=== PATIENT | female | born 1975 | race Caucasian/White ===

== ENCOUNTER 2019-07-31 00:36 | Day surgery (SDC) | payer OTHER, SELFPAY ==
[2019-07-18 11:48] VITALS: BMI 28.3
[2019-07-31 07:10] VITALS: BP 124/83; PULSE 81; RESP 18; TEMP 37.2; O2SAT 100
[2019-07-31] MEDS: LACTATED RINGERS 1,000 ML 30 ML IV CONT (07:30)
--- NOTE | 2019-07-31 08:16 | WPDANESEPPF ---
Anes - Initial Pre Proc Eval Procedure: Operation Date: 07/31/19 09:00 Proposed Procedures p Hysteroscopy, Dilation and Curettage, Rin Endometrial Ablation, Possible Myosure - Heath Michel MD Date/Time: 07/31/19 08:16 Surgeon: Heath Michel MD Pre Op Diagnosis: Menorrhagia Patient Data Age: 43 Gender: F Height: 5 ft 1 in Weight: 68.35 kg Last Vital Signs Temp 37.2 C 07/31/19 07:10 Pulse 81 07/31/19 07:10 Resp 18 07/31/19 07:10 BP 124/83 07/31/19 07:10 Pulse Ox 100 07/31/19 07:10 Allergies Allergy/AdvReac Type Severity Reaction Status Date / Time codeine AdvReac Unknown Itching Verified 07/31/19 07:32 Home Medications Medication Instructions Recorded Confirmed Type Neocell Joint Support 1 tablet PO DAILY 07/18/19 History multivitamin 1 tablet PO DAILY 07/18/19 07/18/19 History Patient hx anesthesia problems: none Family hx anesthesia problems: none PMFSH Past Medical History Medical History Vaginal delivery Surgical History Surgical History Hx of laparoscopy Family History Family History Grandparent Family history of coronary artery disease, Onset Age: 45 Diabetes mellitus Social History Social History Smoking status: Never smoker Second hand tobacco smoke exposure: No Alcohol intake: current Anes - Eval Final PreProcedure Day of Procedure 07/31/19 08:16 Patient weight: overweight Heart: regular rate and rhythm Lungs: clear to auscultation Airway: Mallampati scale class II Neurological: alert and oriented Last oral intake: >/= 8 hours ASA classification: II Emergent: no Anesthetic plan: proceed Anesthesia type and monitoring: general GIVS and standard monitoring Informed Consent: The patient's anesthetic plan and its attendant risks and benefits were discussed with the patient/family/POA. Questions were solicited and answers provided to the satisfaction of the patient/family/POA.
--- NOTE | 2019-07-31 08:19 | PM.IMHP ---
H&P: HPI History of Present Illness Chief complaint: Menorrhagia Narrative: Hafsa Barreto is a 43 year old female with a long history of menorrhagia. She desires endometrial ablation. Declines all other medical options for treatment of menorrhagia. She has had a recent normal endometrial biopsy. Review of Systems Review of Systems: All systems reviewed & are unremarkable except as noted in HPI and below Constitutional: Constitutional: Reports no additional constitutional complaints Eyes: Eyes: Reports no additional eye complaints ENT: Reports Normal hearing present Cardiovascular: Cardiovascular: Denies chest pain and Denies dyspnea Respiratory: Respiratory: Reports no additional respiratory complaints, Reports cough, Denies dyspnea and Reports other Gastrointestinal: Gastrointestinal: Denies abdominal pain Genitourinary: Genitourinary: Reports no additional female genitourinary complaints, Reports as per HPI, Denies dyspareunia, Denies vaginal discharge, Denies vaginal dryness, Denies vaginal odor and Denies vaginal pruritus Integumentary/Breasts: Skin/Breast: Denies breast mass and Denies nipple discharge Neurologic: Reports Normal hearing present Psychiatric: Psychiatric: Reports no additional psychiatric complaints Endocrine: Endocrine: Reports no additional endocrine complaints Hematologic/Lymphatic: Hematologic/Lymphatic: Reports no additional hematologic/lymphatic complaints PMFSH Past Medical History Medical History Vaginal delivery Surgical History Surgical History Hx of laparoscopy Family History Family History Grandparent Family history of coronary artery disease, Onset Age: 45 Diabetes mellitus Social History Social History Smoking status: Never smoker Second hand tobacco smoke exposure: No Alcohol intake: current Meds Home Medications and Allergies Home Medications Medication Instructions Recorded Confirmed Type Neocell Joint Support 1 tablet PO DAILY 07/18/19 History multivitamin 1 tablet PO DAILY 07/18/19 07/18/19 History Allergies Allergy/AdvReac Type Severity Reaction Status Date / Time codeine AdvReac Unknown Itching Verified 07/31/19 07:32 Vital Signs Vital Signs - 24 hr 07/31/19 07:10 Temperature 99.0 F Pulse Rate 81 Respiratory Rate 18 Blood Pressure 124/83 Pulse Oximetry 100 Exam Const: General: healthy appearing, no acute distress, alert and awake Nutritional Appearance: well nourished Orientation/consciousness: oriented to person, oriented to place, oriented to time and patient oriented x3 HENMT: Head: normal to inspection Ears: hearing grossly normal bilaterally Eyes: General: appearance normal, both eyes and all related structures Resp: Effort & Inspection: normal respiratory effort and other Auscultation: clear to auscultation bilaterally Cardio: Rate: regular rate Rhythm: regular rhythm GI: Inspection: normal to inspection GI Palp: Yes No hepatosplenomegaly present Rectal Exam: visual inspection normal : General: Yes bladder normal to palpation External Female Exam: normal external appearance and normal appearance of the urethra Speculum Exam - Vagina: normal appearance of the vagina Speculum Exam - Cervix: normal appearance of the cervix Bimanual exam- vagina & uterus: normal bimanual exam, uterine size normal, bladder normal to palpation, consistency normal, non-tender and no cervical motion tenderness Bimanual Exam- Adnexa, other: no masses, normal and No adnexal tenderness OB/external & speculum: external exam normal Skin: General skin exam: normal color Neuro: General: oriented to person, oriented to place, oriented to time and patient oriented x3 Cranial nerves: Yes Normal hearing present Ex
[2019-07-31] MEDS: ceFAZolin 2 GM/D5W 50 ML 2 GM/50 ML BAG IVPB (09:10)
[2019-07-31] MEDS: KETOROLAC 30 MG/ML VIAL (*BKC) IV PUSH (09:33)
[2019-07-31 09:44] VITALS: BP 120/71; PULSE 67; RESP 14; O2SAT 97
--- NOTE | 2019-07-31 09:51 | PM.PROC ---
Procedure Note - Detailed Date of procedure: 07/31/19 Pre-op diagnosis: Menorrhagia Abnormal uterine bleeding with menorrhagia Post-op diagnosis: same Procedure performed: Hysteroscopic endometrial ablation with Rin and currettage. Description of procedure: After informed consent was obtained patient was taken to the operating room and adequate general endotracheal anesthesia was administered. Attention was turned to the vagina. Speculum was inserted. Single-tooth tenaculum placed on the anterior lip of the cervix. The uterus was sounded to 8 cm. The cervix was dilated to an 8 Moya dilator. The hysteroscope was inserted into the cavity. The findings were a normal uterine cavity. Proliferative endometrium noted. The hysteroscope was removed. The Rin ablation instrument was inserted into the cavity. Cavity assessment was performed and noted to be intact. The ablation was enabled. After 120 seconds the Rin stopped. The ablation instrument was removed. The hysteroscope was inserted and there was noted to be good eschar with the cavity. The hysteroscope was removed the single-tooth tenaculum was removed hemostasis was noted at the tenaculum site. Sponge count correct x3 The patient was extubated in the operating room and taken to recovery in stable condition. Anesthesia: GETA Surgeon: Heath Michel MD Estimated blood loss (mL): 5 Drains: No Packing: No Pathology: none sent Complications: No immediate complications Condition: stable Disposition: PACU Findings: Uterus sound to 8cm, cervical length 3cm, uterine length 5cm, uterine cavity normal, no lesions.
[2019-07-31 10:35] VITALS: BP 134/91; PULSE 67; RESP 14
== END 2019-07-31 10:35 | disposition home or self-care (01) ==
PROVIDERS: PCP Obstetrics & Gynecology; Visit Provider Obstetrics & Gynecology
PROC: 0U5B8ZZ Destruction of Endometrium, Via Natural or Artificial Opening Endoscopic (ICD-10-PCS; CPT 58563; principal; 2019-07-31 09:00)
DX: N92.0 Excessive and frequent menstruation with regular cycle (principal)
CPT/HCPCS: 58563; 88305; A9270; J0131; J0690; J1885; J2250; J2405; J2704; J3010; J7030; J7120

== ENCOUNTER 2020-09-21 10:49 | Outpatient (CLI) | payer OTHER, SELFPAY ==
--- NOTE | ~2020-09-21 | US_ITS ---
EXAMINATION: US pelvic complete w TV EXAM DATE: 09/21/2020 11:28 INDICATION: R10.2 - Pelvic and perineal pain . History of ablation. TECHNIQUE: Pelvic transabdominal and transvaginal sonogram was performed. There are multiple graysca le and Doppler images available for interpretation. There is no prior study for comparison. FINDINGS: Uterus measures 10.6 x 6.1 x 7.0 cm, and is morphologically normal. Endometrial stripe me asures 12 mm at the fundus, where there is homogeneous hypoechoic material that could be in the lumen of the endometrial canal, could be focal region of blood, endometrial hyperplasia or polyp. There i s no free pelvic fluid. Right adnexa: The ovary measures 2.1 x 1.7 x 2.1 cm and is morphologically normal. Ovarian vascular f low confirmed. Left adnexa: The ovary measures 3.1 x 3.1 x 3.4 cm and is morphologically normal. Ovarian vascular fl ow confirmed. IMPRESSION: Homogeneous hypoechoic material suspected within the endometrial canal, could be blood pr oducts or polyp. Endometrial hyperplasia also possible. Measurement distal within normal limits for p remenopausal status. Reviewed, dictated and finalized at location A. IMPRESSION: Homogeneous hypoechoic material suspected within the endometrial ca nal, could be blood products or polyp. Endometrial hyperplasia also possible. M easurement distal within normal limits for premenopausal status.
== END 2020-09-21 10:50 ==
PROVIDERS: Visit Provider Obstetrics & Gynecology
DX: R10.2 Pelvic and perineal pain (principal)
CPT/HCPCS: 76830; 76856

== ENCOUNTER 2021-04-13 11:30 | Outpatient (CLI) | payer OTHER, SELFPAY ==
[2021-04-13 11:54] LABS: Hematocrit 41.6 % (37.0-47.0); Hemoglobin 14.6 g/dL (12.0-15.0); Mean Corpuscular HGB Conc 35.1 g/dl (32-36); Mean Corpuscular Hemoglobin 30.5 pg (26-34); Mean Platelet Volume 8.7 fl (7.4-10.4); Platelet Count Result 392 k/mm3 (150-375); Red Blood Count 4.78 M/mm3 (4.2-5.4); Red Cell Distribution Width 11.8 % (11.5-14.5); White Blood Count 9.1 K/mm3 (4.5-10.0)
[2021-04-16 05:28] LABS: FSH 11.2 mIU/mL (***)
== END 2021-04-13 11:31 | disposition home or self-care (01) ==
LOC: ANHLAB 11:33
PROVIDERS: Visit Provider Obstetrics & Gynecology
DX: N92.0 Excessive and frequent menstruation with regular cycle (principal)
CPT/HCPCS: 36415; 83001; 85027

== ENCOUNTER → 2021-04-19 03:33 | Outpatient (CLI) | payer OTHER, SELFPAY ==
[2021-04-19 19:11] LABS: SARS-CoV-2 RNA PCR Negative
== END ==
PROVIDERS: Visit Provider Obstetrics & Gynecology
DX: Z01.812 Encounter for preprocedural laboratory examination (principal); Z20.822 Contact with and (suspected) exposure to COVID-19
CPT/HCPCS: C9803; U0003; U0005

== ENCOUNTER 2021-04-19 08:01 | Outpatient (CLI) | payer OTHER, SELFPAY | END 2021-04-19 08:02 | disposition home or self-care (01) | LOC: ANHSURGERY 08:04 | PROVIDERS: PCP Internal Medicine; Visit Provider Obstetrics & Gynecology | DX: R10.2 Pelvic and perineal pain (principal) | CPT/HCPCS: 36415; 86850; 86900; 86901 ==

== ENCOUNTER 2021-04-21 00:08 | Day surgery (SDC) | payer OTHER, SELFPAY ==
[2021-04-07 10:20] VITALS: BMI 30.6
--- NOTE | 2021-04-07 10:36 | PC.NURSE ---
Report to the Outpatient Waiting Room, entrance under the green pavilion located off [facility], at time 6:00 on date 04/21/21. OR Time: 7:30. - You and your visitor will be asked a series of questions to screen for COVID 19 for your protection. - A mask is required within the hospital. - Only one visitor is allowed at this time. Patient visitors will be guided where to wait when not with patient. Preoperative COVID Testing Requirements: No COVID Test needed if: (proof is required; if not received patient will have Rapid Test prior to entry) - Patient has received COVID Vaccine at least 14 days prior to procedure date or - Patient has positive COVID test result within last 90 days of surgery date. COVID Test needed if above criteria is not met If not COVID vaccinated a COVID test must be conducted within 72 hours of surgery and patient is asked to isolate self from time of testing until procedure. You will go to the [facility] for your COVID testing. The [facility] is located at the corner of [address] [facility]. COVID TEST 04/19 AT 7:45 You will only be called if COVID results are positive and your surgeon may reschedule your elective surgery date. Patients may have clear liquids (water, carbonated beverages, clear teas, apple juice) until 3 hours prior to surgery with a maximum of 20 ounces. - No food from midnight until time of surgery - Infants may have breast milk until 4 hours before surgery, formula 6 hours prior to surgery. - Children will be allowed to drink immediately following surgery. If applicable, please bring a bottle or sippy cup to assist with drinking. Juice, water, soda, and popsicles are readily available. For infants on formula, please bring formula the day of surgery. Pacifiers are allowed. Take the following medications with a SIP of water the morning of surgery: N/A Medications to discontinue per physician: VITAMINS/SUPPLEMENTS Date to take last dose: 04/17/21 Please no make-up, nail yoruba, hairspray, perfume, deodorant, or body powder the day of surgery. No jewelry (including any body piercings) or valuables the day of surgery, leave them at home. Please take a shower or bath the night before, or the morning of, surgery with an antibacterial soap. Wear comfortable, loose fitting clothing. Children are encouraged to wear pajamas. - Jewelry must be removed prior to entering the operating room. Rings and piercings that are not removed may be cut off. - The hospital will not accept responsibility for valuables. - Please leave all valuables, including medications, at home the day of surgery. If you are going home after surgery, a licensed corporate driver must drive you home. - NO public transportation without another adult. - We recommend that an adult stay with you for 24 hours following discharge. - We also recommend that you do not drive, make important decision, drink alcoholic beverages, or take any drugs that were not prescribed by your health care provider for at least 24 hours after your discharge time. For Pediatric surgeries, we recommend two adults accompany the child home (only one inside the building at this time). Follow any additional instructions given to you from your surgeon. Telephone instructions given to [facility] and asked if any additional questions and then verbalized understanding. Patient advised to call surgeon office or pre surgery nurse liaison [phone] if any additional questions.
--- NOTE | 2021-04-20 16:13 | PM.IMHP ---
H&P: HPI History of Present Illness Date/Time: 04/20/21 16:13 Patient with a history of abnormal uterine bleeding. She had a history of heavy periods which the heavy flow did improve after the endometrial ablation. She did start having cyclic severe dysmenorrhea which did not respond to NSAIDS or treatment with antibiotics for possible subclinical endometritis. She did have an ultrasound and a subsequent endometrial biopsy which showed possible polyp, possible fibroid no hyperplasia or concern for cancer. The ultrasound did not show fibroids. She started having increased prolonged period. She declines trial of any hormonal options. She desires definitive treatment of the bleeding and pelvic pain. She has had a prior tubal ligation. She has been counseled regarding the robotic laparoscopic procedure and risk benefits and alternatives and wishes to proceed with the procedure. Chief Complaint: Pelvic pain abnormal bleeding Review of Systems Review of Systems: All systems reviewed & are unremarkable except as noted in HPI and below Cardiovascular: Cardiovascular: Reports no additional cardiovascular complaints, Denies chest pain and Denies dyspnea Respiratory: Respiratory: Reports no additional respiratory complaints and Denies dyspnea Gastrointestinal: Gastrointestinal: Reports abdominal pain, Denies change in bowel habits, Denies diarrhea, Denies nausea and Denies vomiting Genitourinary: Genitourinary: Reports pelvic pain Musculoskeletal: Musculoskeletal: Reports back pain Integumentary/Breasts: Skin/Breast: Reports system reviewed and no additional complaints, except as docu Neurologic: Reports system reviewed and no additional complaints, except as documented PMFSH Past Medical History Medical History (Updated 04/21/21 @ 07:05 by Sohail Mccall MD) Arthritis Menorrhagia Vaginal delivery x 3 Surgical History Surgical History H/O tubal ligation Hx of laparoscopy S/P endometrial ablation S/P rotator cuff repair Family History Family History Grandparent Family history of coronary artery disease, Onset Age: 45 Diabetes mellitus Social History Social History Years smoked: 6 Smoking status: Former smoker Tobacco type: cigarettes Second hand tobacco smoke exposure: No Smoking end date: 05/15/94 Alcohol intake: current Drinks per week: 5 Substance use: never Substance use type: does not use Living arrangements: with family Spiritual care concerns: No Meds Home Medications and Allergies Home Medications Medication Instructions Recorded Confirmed Type Neocell Joint Support 1 tablet PO DAILY 07/18/19 04/21/21 History multivitamin 1 tablet PO DAILY 07/18/19 04/21/21 History ascorbic acid (vitamin C) 500 mg 500 mg PO DAILY 09/16/20 04/21/21 History capsule cholecalciferol (vitamin D3) 250 250 mcg PO DAILY 09/16/20 04/21/21 History mcg (10,000 unit) capsule Allergies Allergy/AdvReac Type Severity Reaction Status Date / Time codeine AdvReac Unknown Itching Verified 04/21/21 06:27 Exam Const: Orientation/consciousness: oriented to person and oriented to place HENMT: Head: normal to inspection Eyes: General: appearance normal, both eyes and all related structures Resp: Effort & Inspection: normal respiratory effort Auscultation: clear to auscultation bilaterally Cardio: Rate: regular rate Rhythm: regular rhythm GI: Inspection: normal to inspection GI Palp: No Rebound tenderness present : External Female Exam: normal external appearance Speculum Exam - Vagina: normal appearance of the vagina Speculum Exam - Cervix: normal appearance of the cervix Bimanual exam- vagina & uterus: normal bimanual exam Bimanual Exam- Adnexa, other: normal adnexae and no masses Neuro: General: oriented to person
[2021-04-21] VITALS (11 sets, daily range): BP systolic 90–144; BP diastolic 39–91; PULSE 60–103; RESP 12–20; TEMP 36.3–37.7; O2SAT 95–100
[2021-04-21] MEDS: ACETAMINOPHEN 500 MG TABLET 1000 MG PO (06:33)
[2021-04-21] MEDS: LACTATED RINGERS 1,000 ML 30 ML IV CONT ×2 (06:41→10:29)
[2021-04-21] MEDS: KETOROLAC 15 MG/ML VIAL (*BKC) IV PUSH (06:42)
--- NOTE | 2021-04-21 07:04 | WPDANESEPPF ---
Anes - Initial Pre Proc Eval Procedure: Operation Date: 04/21/21 07:30 Proposed Procedures p Robotic Assisted Total Vaginal Hysterectomy with Bilateral Salpingectomy - Heath Michel MD Date/Time: 04/21/21 07:04 Surgeon: Heath Michel MD Pre Op Diagnosis: pelvic and perineal pain Patient Data Age: 45 Gender: F Height: 1.55 m Weight: 73.48 kg Allergies Allergy/AdvReac Type Severity Reaction Status Date / Time codeine AdvReac Unknown Itching Verified 04/21/21 06:27 Home Medications Medication Instructions Recorded Confirmed Type Neocell Joint Support 1 tablet PO DAILY 07/18/19 04/21/21 History multivitamin 1 tablet PO DAILY 07/18/19 04/21/21 History ascorbic acid (vitamin C) 500 mg 500 mg PO DAILY 09/16/20 04/21/21 History capsule cholecalciferol (vitamin D3) 250 250 mcg PO DAILY 09/16/20 04/21/21 History mcg (10,000 unit) capsule Patient hx anesthesia problems: none Family hx anesthesia problems: none Results Review: All pre-operative results and documents have been reviewed as part of the pre-operative evaluation. [facility] Past Medical History Medical History (Updated 04/21/21 @ 07:05 by Sohail Mccall MD) Arthritis Menorrhagia Vaginal delivery x 3 Surgical History Surgical History H/O tubal ligation Hx of laparoscopy S/P endometrial ablation S/P rotator cuff repair Family History Family History Grandparent Family history of coronary artery disease, Onset Age: 45 Diabetes mellitus Social History Social History Years smoked: 6 Smoking status: Former smoker Tobacco type: cigarettes Second hand tobacco smoke exposure: No Smoking end date: 05/15/94 Alcohol intake: current Drinks per week: 5 Substance use: never Substance use type: does not use Living arrangements: with family Spiritual care concerns: No Anes - Eval Final PreProcedure Day of Procedure 04/21/21 07:04 Patient weight: obese Heart: regular rate and rhythm Lungs: clear to auscultation Airway: Mallampati scale class II Neurological: alert and oriented Last oral intake: >/= 8 hours ASA classification: II Emergent: no Anesthetic plan: proceed Anesthesia type and monitoring: general ETT and standard monitoring Results Review: All pre-operative results and documents have been reviewed as part of the pre-operative evaluation. Informed Consent: The patient's anesthetic plan and its attendant risks and benefits were discussed with the patient/family/POA. Questions were solicited and answers provided to the satisfaction of the patient/family/POA.
--- NOTE | 2021-04-21 07:19 | WPDHPUPDATE1 ---
History and Physical Update Update Date/Time: 04/21/21 07:19 History and Physical has been reviewed, including an updated exam of the patient. There are NO changes in the patient's condition. Risks, benefits, and alternatives have been discussed and questions answered. Patient agrees to proceed with procedure.
[2021-04-21] MEDS: ceFAZolin 2 GM/D5W 50 ML 2 GM/50 ML BAG IVPB (07:28)
--- NOTE | 2021-04-21 09:16 | SUR.OPER ---
uterus 176.2gm
--- NOTE | 2021-04-21 10:07 | PM.OP ---
Procedure Note - Brief Procedure Note - Brief Date of procedure: 04/21/21 Pre-op diagnosis: pelvic and perineal pain abnormal uterine bleeding Post-op diagnosis: same Procedure performed: Robotic assisted laparoscopic hysterectomy with bilateral salpingectomy 2. Right ovarian cystectomy 3. Left ovarian cystectomy Anesthesia: GETA Surgeon: Heath Michel MD Estimated blood loss (mL): 75 IV fluids (mL): 1,600 Urine output (mL): 125 Drains: No Packing: No Pathology: yes (Uterus with cervix and right and left fallopian tubes and right ovarian cyst wall and left ovarian cyst wall) Complications: No immediate complications Condition: stable Disposition: PACU Findings: enlarged globular uterus, 2cm cyst on right and left ovary, right fallopian tube appeared mildly dilated
[2021-04-21] MEDS: BUPIVACAINE HCL 0.5% PF 30 ML VIAL INFILTRATE (10:09)
[2021-04-21] MEDS: fentaNYL CITRATE INJ (*CRX) 100 MCG/2 ML VIAL 25 MCG IV PUSH (11:21)
--- NOTE | 2021-04-21 11:44 | PC.NURSE ---
This patient, Hafsa Barreto, was received from PACU per marylou on 04/21/21 at 1144. Patient oriented to unit policies and routines
--- NOTE | 2021-04-21 12:11 | W.PM.PROC2 ---
Procedure Note - Detailed Date of Procedure 04/21/21 Pre-op Diagnosis pelvic and perineal pain abnormal uterine bleeding Post-op Diagnosis same (3. Bilateral ovarian cysts) Procedure Performed Robotic assisted laparoscopic hysterectomy with bilateral salpingectomy. Right and left ovarian cystectomy Surgeon Heath Michel MD [employer] Aston Hardwick Anesthesia general Indications Patient with abnormal bleeding not relieved with prior endometrial ablation. Also subsequent cyclic pelvic pain. Declines hormonal options. Desires definitve treatment of her symptoms with hysterectomy. Findings Uterus enlarged and boggy, 2cm ovarian cyst on right and left ovary. Tubes findings consistent with prior tubal ligation. Description of Procedure After informed consent was obtained she was taken to the operating room and general endotracheal anesthesia was administered. She was placed in low lithotomy position and prepped and draped in sterile fashion. Jay catheter placed in bladder. Attention was turned to the vagina speculum was inserted. Single-tooth tenaculum placed on anterior lip of the cervix the uterus sounded to 8 cm. Cavity narrow consistent with prior endometrial ablation. The cervix was dilated to a 7 Moya dilator. The uterine manipulator was inserted and secured. A size 3.5 colp cup was secured in the vagina. A catheter was placed. Attention was turned to the abdomen with new sterile the glove and incision was made horizontal 2 cm above the umbilicus. A Veress needle was inserted confirmation into the abdomen was obtained with free flow of fluid and normal peritoneal pressures. Pneumoperitoneum of 15 mm per mercury was obtained. A size 8mm port was inserted under laparoscopic visualization into the abdomen. Confirmation obtained. Attention was turned to the left side of the abdomen 8 cm below and lateral to the initial incision and incision was made and a size 8 robotic port was inserted under laparoscopic visualization. Attention was turned to the right side of the abdomen and parallel to this and incision was made. A 8 mm robotic port was inserted under laparoscopic visualization. Superior and 5 mm medial to this a 10 medical assistant float port was inserted under laparoscopic visualization. Patient was placed in Trendelenburg position to the point to allow the bowel to retract out of the pelvis. The robotic arms were attached. Attention was turned to the surgical console. Attention was turned to the right round ligament which was cauterized and incised the anterior leaf of the broad ligament was further dissected to the level of the vesicouterine peritoneum. The right side of the bladder was dissected from the lower uterine segment and upper cervix. The right fallopian tube was cauterized from the broad ligament. The anterior and the posterior leaf of the broad ligament were further incised and dissected. The uterine vessels on the right were skeletonized. The ascending uterine vessels on the right were cauterized. The posterior leaf of the broad ligament was further dissected. The uterine vessels were cauterized. Attention was turned to the left fallopian tube which was cauterized from the broad ligament. The left round ligament was cauterized. The left anterior leaf of the broad ligament was further dissected to the vesicouterine peritoneum. The rest of the bladder was dissected from the lower uterine segment to below the level of the palpable colpotomy cup. The posterior leaf of the broad ligament was further dissected. The uterine vessels were cauterized. The ascending uterine vessels were cauterized the uterine arteries were further skeletonized. The uterine arteries were cauterized. An incision was made anterior colpotomy incision was made and this was carried around until the cervix was removed from the vagina. The uterus cervix and fallopian tubes were removed through the vagina. The vaginal cuff was closed in a running fashion with 0
[2021-04-21] MEDS: DEXTROSE 5%/0.45% SOD CHL 1,000 ML 125 ML IV CONT (14:03)
[2021-04-21] MEDS: KETOROLAC 30 MG/ML VIAL (*BKC) IV PUSH ×2 (14:04→21:05)
[2021-04-21] MEDS: SIMETHICONE 80 MG TAB.CHEW PO (19:28)
[2021-04-22 04:00] VITALS: BP 131/86; PULSE 96; RESP 18; TEMP 36.8; O2SAT 99
[2021-04-22] MEDS: IBUPROFEN 600 MG TABLET PO (04:06)
[2021-04-22 07:35] VITALS: BP 120/57; PULSE 94; RESP 18; TEMP 37.2; O2SAT 96
[2021-04-22 09:00] VITALS: PULSE 96; RESP 18; O2SAT 99
--- NOTE | 2021-04-22 09:03 | PM.GYNPNOP ---
BOTTOM PAINTER - A/P Assessment and plan (1) Status post hysterectomy: Code(s): Z90.710 - Acquired absence of both cervix and uterus Status: Acute Assessment and Plan: She is doing well. Will discharge home. Discharge precautions discussed. Postoperative Procedures: Procedures Operation Date: 04/21/21 07:30 Actual Procedure Side Surgeon p Robotic Assisted Total Vaginal Hysterectomy with Bilateral Salpingectomy,Bilateral Ovarian Cystectomy Bilateral Heath Michel MD Time Spent With Patient Time: Total time spent is greater than 50% in coordination of care (as documented) at patient's floor/unit and/or counseling patient: Time with patient: less than 15 minutes BOTTOM PAINTER- PN:Subj Post-Op Subjective Date/time seen: 04/22/21 09:03 Interval history: She has walked without problems. She reports positive flatus. She has had a good pain control with the IV pain medicines. Has urinated without problems. Mild spotting. Had episode of emesis last night none since no nausea this morning. Subjective: pain is well controlled and patient is tolerating oral intake Review of Systems Review of Systems: All systems reviewed & are unremarkable except as noted in HPI and below Cardiovascular: Cardiovascular: Reports no additional cardiovascular complaints Respiratory: Respiratory: Reports no additional respiratory complaints Gastrointestinal: Gastrointestinal: Reports belching, Denies nausea and Denies vomiting Genitourinary: Genitourinary: Reports no additional female genitourinary complaints Musculoskeletal: Musculoskeletal: Reports no additional musculoskeletal complaints Exam Const: General: comfortable and no acute distress Orientation/consciousness: oriented to person, oriented to place and oriented to time Eyes: Visual Adrian: normal visual adrian by confrontation Resp: Effort & Inspection: normal respiratory effort GI: GI Palp: Yes Soft to palpation Other: nontender incisions intact no drainage Neuro: General: oriented to person, oriented to place and oriented to time Extrem: General: no calf tenderness Psych: Mental Status: mental status grossly normal BOTTOM PAINTER - PN: Obj Data Vital Signs Vital Signs: Vital Signs - 24 hr 04/21/21 10:29 04/21/21 10:40 04/21/21 10:45 Temperature 98.0 F Pulse Rate 90 92 82 Respiratory Rate 12 14 16 Blood Pressure 90/39 L 99/53 L 129/86 Pulse Oximetry 95 98 100 04/21/21 11:00 04/21/21 11:15 04/21/21 11:30 Temperature Pulse Rate 94 85 69 Respiratory Rate 15 16 12 Blood Pressure 115/77 127/79 126/79 Pulse Oximetry 100 97 97 04/21/21 11:45 04/21/21 16:30 04/21/21 19:58 Temperature 98.4 F 98.8 F 98.7 F Pulse Rate 87 103 H 60 Respiratory Rate 18 20 18 Blood Pressure 122/84 131/91 H 144/86 H Pulse Oximetry 96 100 04/21/21 23:16 04/22/21 04:00 Temperature 99.8 F H 98.2 F Pulse Rate 92 96 Respiratory Rate 18 18 Blood Pressure 135/82 131/86 Pulse Oximetry 100 99 Intake/Output Intake/Output: Intake & Output 04/19/21 04/20/21 04/21/21 04/22/21 23:59 23:59 23:59 23:59 Intake Total 1950 Output Total 2270 Balance -320 Meds/Results Medications: Active Medications Generic Name Dose Route Start Last Admin Trade Name Freq PRN Reason Stop Dose Admin Hydrocodone Bitart/Acetaminophen 1 tab 04/21/21 10:14 Hydrocodone/Acetaminophen (*Crx) 5-325 Mg Tablet PO Q3H PRN Pain Rated 5 or Less Hydrocodone Bitart/Acetaminophen 1 tab 04/21/21 10:14 Hydrocodone/Acetaminophen (*Crx) 10-325 Mg Tablet PO Q3H PRN Pain Rated 6 or Greater Ascorbic Acid 500 mg 04/22/21 09:00 Ascorbic Acid 500 Mg Tablet PO DAILY STEPHANIE Lactated Ringer's 1,000 mls @ 30 mls/hr 04/21/21 07:05 04/21/21 11:37 Lr - Lactated Ringers Iv IV CONT Infused .Q24H STEPHANIE Infusion Acetaminophen 1,000 mg in 100 mls @ 400 mls/hr 04/21/21 18:00 Ofirmev 1,000 Mg Ivpb IVPB 04/22/21 17:59 Q6HR STEPHANIE Ibuprofen 600 mg
--- NOTE | 2021-04-22 10:51 | PC.NURSE ---
1050-RN discovered patient forgot discharge paperwork. RN telephoned patient but she refused to come back to retrieve it.
== END 2021-04-22 10:45 | disposition home or self-care (01) ==
LOC: ANHSURGERY 05:57 → ANHOB2 11:33
PROVIDERS: PCP Internal Medicine; Visit Provider Obstetrics & Gynecology
PROC: (CPT 58552; principal; 2021-04-21 07:30)
DX: R10.2 Pelvic and perineal pain (principal); N92.0 Excessive and frequent menstruation with regular cycle; N70.11 Chronic salpingitis; N83.02 Follicular cyst of left ovary; N83.01 Follicular cyst of right ovary; N94.6 Dysmenorrhea, unspecified; Z87.891 Personal history of nicotine dependence; E66.9 Obesity, unspecified; Z68.31 Body mass index [BMI] 31.0-31.9, adult
CPT/HCPCS: 58552; S2900; 36415; 86850; 86900; 86901; 88305; 88307; 99199; A9270; C9803; J0690; J1100; J1170; J1200; J1885; J2250; J2405; J2704; J2710; J3010; J7030; J7120; U0003; U0005

== ENCOUNTER 2022-02-23 09:24 | Day surgery (SDC) | payer OTHER, SELFPAY ==
[2021-12-02 13:56] VITALS: BMI 28.3
[2022-02-10 09:42] VITALS: BMI 30.8
[2022-02-23 10:40] VITALS: BP 138/95; PULSE 80; RESP 16; TEMP 36.3; O2SAT 100
[2022-02-23] MEDS: LACTATED RINGERS 1,000 ML 150 ML IV CONT (10:52)
--- NOTE | 2022-02-23 12:09 | P.PNAN_ITS ---
Anes - Initial Pre Proc Eval Procedure: Operation Date: 02/23/22 12:00 Proposed Procedures p Screening Colonoscopy - Endy Pantoja MD Date/Time: 02/23/22 12:09 Surgeon: Endy Pantoja MD Pre Op Diagnosis: Neoplam Screening Patient Data Age: 46 Gender: F Height: 1.55 m Weight: 72.2 kg Last Vital Signs Temp 36.3 C L 02/23/22 10:40 Pulse 80 02/23/22 10:40 Resp 16 02/23/22 10:40 BP 138/95 H 02/23/22 10:40 Pulse Ox 100 02/23/22 10:40 O2 Del Method Room Air 02/23/22 10:40 Allergies Allergy/AdvReac Type Severity Reaction Status Date / Time codeine AdvReac Unknown Itching Verified 02/23/22 10:37 Home Medications Medication Instructions Recorded Confirmed Type Neocell Joint Support 1 tablet PO DAILY 07/18/19 02/23/22 History multivitamin 1 tablet PO DAILY 07/18/19 02/23/22 History ascorbic acid (vitamin C) 500 mg 500 mg PO DAILY 09/16/20 02/23/22 History capsule cholecalciferol (vitamin D3) 250 250 mcg PO DAILY 09/16/20 02/23/22 History mcg (10,000 unit) capsule Patient hx anesthesia problems: none Family hx anesthesia problems: none Results Review: All pre-operative results and documents have been reviewed as part of the pre- operative evaluation. PMFSH Past Medical History Medical History Arthritis Menorrhagia Vaginal delivery x 3 Surgical History Surgical History H/O tubal ligation Hx of laparoscopy S/P endometrial ablation S/P partial hysterectomy S/P rotator cuff repair Family History Family History Grandparent Family history of coronary artery disease, Onset Age: 45 Diabetes mellitus Social History Social History Smoking packs per day: 0.5 Smoking cigarettes per day: 10.0 Years smoked: 5 Smoking pack-years: 2.50 Smoking status: Former smoker Tobacco type: cigarettes Second hand tobacco smoke exposure: No Smoking end date: 05/15/94 Alcohol intake: current Drinks per week: 4 Alcohol use details: SOCIAL Substance use: never Substance use type: does not use Living arrangements: with family Spiritual care concerns: No Anes - Eval Final PreProcedure Day of Procedure 02/23/22 12:09 Patient weight: overweight Heart: regular rate and rhythm Lungs: clear to auscultation Airway: Mallampati scale class II Neurological: alert and oriented Last oral intake: >/= 8 hours ASA classification: II Emergent: no Anesthetic plan: proceed Anesthesia type and monitoring: general GIVS and standard monitoring Results Review: All pre-operative results and documents have been reviewed as part of the pre- operative evaluation. Informed Consent: The patient's anesthetic plan and its attendant risks and benefits were discussed with the patient/family/POA. Questions were solicited and answers provided to the satisfaction of the patient/family/POA.
--- NOTE | 2022-02-23 13:29 | SUR.PREOP ---
1315 pt/family update provided r/t delay w/surgeon. pt acknowledges understanding/family member left facility at this time/updates to be provided.
--- NOTE | 2022-02-23 13:52 | PM.HPGS ---
History of Present Illness History of Present Illness Consent: Risks, benefits, and alternatives have been discussed and questions answered. Patient agrees to proceed with procedure. Chief complaint: Neoplam Screening Narrative: Hafsa Barreto is a 46 year old female here for first screening colonoscopy Review of Systems Constitutional: Constitutional: Denies headache(s) and Denies weakness Eyes: Eyes: Denies blurry vision ENT: Reports Normal hearing present, Denies headache(s) and Denies neck pain Cardiovascular: Cardiovascular: Denies chest pain and Denies dyspnea Respiratory: Respiratory: Denies dyspnea Gastrointestinal: Gastrointestinal: Reports no additional gastrointestinal complaints Genitourinary: Genitourinary: Denies dysuria Musculoskeletal: Musculoskeletal: Denies neck pain Integumentary/Breasts: Skin/Breast: Denies dry skin Neurologic: Reports Normal hearing present, Denies headache(s) and Denies weakness Psychiatric: Psychiatric: Denies anxiety Endocrine: Endocrine: Denies change in body appearance Hematologic/Lymphatic: Hematologic/Lymphatic: Denies easy bleeding Allergic/Immunologic: Allergic/Immunologic: Denies urticaria PMFSH Past Medical History Medical History (Updated 02/23/22 @ 13:53 by Endy Pantoja MD) Arthritis Colon cancer screening Menorrhagia Vaginal delivery x 3 Surgical History Surgical History H/O tubal ligation Hx of laparoscopy S/P endometrial ablation S/P partial hysterectomy S/P rotator cuff repair Family History Family History Grandparent Family history of coronary artery disease, Onset Age: 45 Diabetes mellitus Social History Social History Smoking packs per day: 0.5 Smoking cigarettes per day: 10.0 Years smoked: 5 Smoking pack-years: 2.50 Smoking status: Former smoker Tobacco type: cigarettes Second hand tobacco smoke exposure: No Smoking end date: 05/15/94 Alcohol intake: current Drinks per week: 4 Alcohol use details: SOCIAL Substance use: never Substance use type: does not use Living arrangements: with family Spiritual care concerns: No Meds Home Medications and Allergies Home Medications Medication Instructions Recorded Confirmed Type Neocell Joint Support 1 tablet PO DAILY 07/18/19 02/23/22 History multivitamin 1 tablet PO DAILY 07/18/19 02/23/22 History ascorbic acid (vitamin C) 500 mg 500 mg PO DAILY 09/16/20 02/23/22 History capsule cholecalciferol (vitamin D3) 250 250 mcg PO DAILY 09/16/20 02/23/22 History mcg (10,000 unit) capsule Allergies Allergy/AdvReac Type Severity Reaction Status Date / Time codeine AdvReac Unknown Itching Verified 02/23/22 10:37 Vital Signs Vital Signs - 24 hr 02/23/22 10:40 Temperature 97.4 F L Pulse Rate 80 Respiratory Rate 16 Blood Pressure 138/95 H Pulse Oximetry 100 Oxygen Delivery Room Air Exam Const: General: comfortable and no acute distress HENMT: Face/Nose/Sinus: Normal nares present Eyes: General: appearance normal, both eyes and all related structures Neck: Neck: no JVD Resp: Auscultation: clear to auscultation bilaterally Cardio: Rate: regular rate Rhythm: regular rhythm GI: Inspection: non-distended GI Palp: Yes Soft to palpation Skin: General skin exam: normal color Neuro: General: gait normal Speech: normal speech Extrem: General: normal to inspection Psych: Mental Status: mental status grossly normal Assessment and Plan Assessment and plan (1) Colon cancer screening: Code(s): Z12.11 - Encounter for screening for malignant neoplasm of colon Status: Acute Assessment and Plan: colonoscopy
[2022-02-23 14:05] VITALS: BP 114/56; PULSE 81; RESP 16; O2SAT 100
[2022-02-23 14:15] VITALS: BP 126/93; PULSE 84; RESP 20; O2SAT 100
--- NOTE | 2022-02-23 14:15 | WPDANESPN ---
Anes - Prog Note Post-Op Date/Time: 02/23/22 14:15 Cardiovascular status: normal Respiratory status: normal Airway patency: baseline Mental status: baseline Post-Op hydration status: normal Vital Signs: Last Vital Signs Temp 36.3 C L 02/23/22 10:40 Pulse 81 02/23/22 14:05 Resp 16 02/23/22 14:05 BP 114/56 L 02/23/22 14:05 Pulse Ox 100 02/23/22 14:05 O2 Del Method Room Air 02/23/22 14:05 Pain Score (VAS): 0 I/O: Intake & Output 02/22/22 02/23/22 02/23/22 23:59 07:59 15:59 Intake Total 700 Balance 700 Patient Feedback: Patient satisfied with anesthetic care.
[2022-02-23 14:25] VITALS: BP 124/93; PULSE 82; RESP 20; O2SAT 100
== END 2022-02-23 14:40 | disposition home or self-care (01) ==
PROVIDERS: PCP Internal Medicine; Visit Provider Internal Medicine Gastroenterology
PROC: 0DJD8ZZ Inspection of Lower Intestinal Tract, Via Natural or Artificial Opening Endoscopic (ICD-10-PCS; CPT 45378; principal; 2022-02-23 12:00)
DX: Z12.11 Encounter for screening for malignant neoplasm of colon (principal)
CPT/HCPCS: 45378

== ENCOUNTER → 2023-05-17 11:16 | Outpatient (CLI) | payer OTHER, SELFPAY ==
--- NOTE | ~2023-05-17 | MM_ITS ---
EXAMINATION: MM screening [facility] w [facility] HISTORY: Screening mammogram TECHNIQUE: Craniocaudal and mediolateral oblique 3-D tomosynthesis images were obtained and synthetic 2-D images were generated. CAD analysis was submitted and interpreted. COMPARISON: 06/11/2019 BREAST PARENCHYMAL COMPOSITION: There are scattered areas of fibroglandular density. FINDINGS: No suspicious mass, calcification, or architectural distortion are identified in either leena ast to suggest malignancy. There has been no suspicious interval change. IMPRESSION: 1. No mammographic evidence of malignancy. 2. Recommend routine screening mammography in one year. BI-RADS Category 1: Negative Reviewed, dictated and finalized at location A. IOLOGIST
== END ==
PROVIDERS: PCP Obstetrics & Gynecology; Visit Provider Obstetrics & Gynecology
DX: Z12.31 Encounter for screening mammogram for malignant neoplasm of breast (principal)
CPT/HCPCS: 77063; 77067